=== PATIENT | female | born 1955 | race Caucasian/White ===

== ENCOUNTER → 2018-11-22 16:58 | Outpatient (CLI) | payer OTHER, SELFPAY ==
[2018-11-22 17:33] LABS: Appearance Urine UA CLEAR; Bilirubin Urine UA NEGATIVE (NEGATIVE); Color Urine UA YELLOW; Glucose Urine UA NEGATIVE (Negative); Ketones Urine UA NEGATIVE (NEGATIVE); Leukocyte Esterase Urine UA NEGATIVE (NEGATIVE); Nitrite Urine UA NEGATIVE (Negative); Occult Blood Urine UA NEGATIVE (Negative); Protein Urine UA TRACE (Negative); Specific Gravity Urine UA 1.025 (1.000-1.035); Urobilinogen Urine UA 0.2 E.U./dL (0.2)
[2018-11-22 17:47] LABS: Bacteria Urine Few (2-10); Mucus Urine 2+ (Negative); RBC Urine 0-1/HPF (0-5/HPF); Squamous Epithelial Cell Urine 1-5 /HPF (0-5/HPF); WBC Urine 1-5/HPF (0-5/HPF)
[2018-11-22 17:52] LABS: Hematocrit 38.3 % (36-46); Mean Corpuscular Hemoglobin 30.5 PG (26-34); Mean Corpuscular Volume 89.8 fL (80-100); Platelet Count 211 X10^3/uL (150-400); Red Blood Cell Count 4.27 X10^6/uL (4.0-5.2); Red Cell Distribution Width 13.5 % (11.6-14.8); White Blood Cell Count 7.6 X10^3/uL (4.5-11.0)
[2018-11-22 18:03] LABS: Blood Urea Nitrogen 16 mg/dL (7-17); Calcium 9.3 mg/dL (8.4-10.2); Carbon Dioxide 28 mmol/L (22-32); Chloride 105 mmol/L (98-107); Estimated Glomerular Filt Rate > 60.0 mL/min (>60); Glucose 100 mg/dL (80-110); HEMOLYSIS < 15 (0-50); Potassium 4.2 mmol/L (3.4-5.1); Sodium 143 mmol/L (137-145)
[2018-11-22 18:06] LABS: Hemoglobin A1C% w Est Avg Glu 6.4 % (4.0-6.0)
[2018-11-22 18:09] LABS: Transferrin 259 mg/dL (206-381)
== END ==
PROVIDERS: PCP Nurse Practitioner Family; Visit Provider Orthopaedic Surgery
DX: E61.1 Iron deficiency (principal); N39.0 Urinary tract infection, site not specified; R73.9 Hyperglycemia, unspecified; Z01.818 Encounter for other preprocedural examination
CPT/HCPCS: 36415; 80048; 81001; 83036; 84466; 85027; 93005

== ENCOUNTER 2018-12-04 07:37 | Inpatient (IN) | payer OTHER, SELFPAY ==
[2018-11-20 08:47] VITALS: BMI 36.1
[2018-12-04] VITALS (16 sets, daily range): BP systolic 114–150; BP diastolic 61–78; PULSE 50–107; RESP 9–17; TEMP 36–36.7; O2SAT 93–97; BMI 35.6
--- NOTE | 2018-12-04 06:00 | DI.RAD.S_ITS ---
PROCEDURE: XR KNEE LT 1TO2V INDICATIONS: post operatvie left knee TECHNIQUE: 2 view(s) of the knee acquired. COMPARISON: None. FINDINGS: Bones: Patient is status post knee joint arthroplasty. Hardware components are in expected positions. Visualized bony structures are intact. Soft tissues: Overlying postoperative changes are noted. IMPRESSION: Normal alignment established after left total knee arthroplasty. Dictated by: Bruno Casillas M.D. on 12/04/2018 at 14:20 Approved by: Bruno Casillas M.D. on 12/04/2018 at 14:21
[2018-12-04] MEDS: LACTATED RINGERS 1,000 ML 42 ML IV ×3 (08:05→13:30)
[2018-12-04] MEDS: CELECOXIB 200 MG CAPSULE PO (08:08)
[2018-12-04] MEDS: ACETAMINOPHEN 325 MG TABLET 975 MG PO ×2 (08:08→22:06)
[2018-12-04] MEDS: PREGABALIN 75 MG CAPSULE PO (08:08)
--- NOTE | 2018-12-04 09:57 | PM.PREOP ---
Pre-operative Note Interval Note History & Physical reviewed/Exam performed by Physician: Yes Changes to H&P: No
[2018-12-04] MEDS: MIDAZOLAM 2 MG/2 ML VIAL IV (10:21)
[2018-12-04] MEDS: fentaNYL 100 MCG/2 ML INJ 50 MCG IV (10:21)
[2018-12-04] MEDS: CEFAZOLIN 2 GM/100 ML FROZ.PIGGY IV (10:50)
--- NOTE | 2018-12-04 11:11 | SUR.OPER ---
Supine on padded OR bed. Pillow under head, arms secured on padded armboards <90 degree abduction. Safety belt across torso. Non-operative leg secured with tape over blanket over lower leg. Operative leg secured in [employer] positioner. Foam padded brace at thigh of operative leg.
[2018-12-04] MEDS: BUPIVACAINE 0.25% W/ EPI 30 ML VIAL 60 ML INJ (11:22)
[2018-12-04] MEDS: BUPIVACAINE LIPOSOME 266 MG/20 ML VIAL INJ (11:23)
[2018-12-04] MEDS: MORPHINE 4 MG/ML INJ INJ (11:23)
[2018-12-04] MEDS: TRANEXAMIC ACID 1,000 MG VIAL 1000 MG INJ (11:27)
--- NOTE | 2018-12-04 12:36 | PM.OP.1 ---
Operative Date/Time/Diagnoses Date of procedure: 12/04/18 Time of procedure: 12:15 Pre-op diagnosis: Left knee osteoarthritis Post-op diagnosis: same Procedure & Clinicians Procedure: Left total knee replacement Same procedure as scheduled: Yes Indications: The patient has had progressively worsening left knee pain with radiographic changes consistent with arthritis. Non-operative management has failed and the patient has requested total knee replacement. The risks, benefits and alternatives to surgery were discussed with the patient prior to proceeding. Risks discussed included, but were not limited to, failure to relieve pain, stiffness, infection, nerve damage, deep venous thrombosis, pulmonary embolism, stroke, coma, heart attack, permanent paralysis and , as well as the potential need for eventual revision of the prosthetic. 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 Closure Type: primary Specimen(s): none sent Prosthetic devices, grafts, tissues, transplants, or devices: Implants used in this procedure were manufactured by the [employer] and [employer] and included the BCS II Journey total knee replacement with a size 5 left Oxinium femoral component, a size 4 left non porous tibial base plate, a 10 mm constrained tibial insert and a 35 mm oval Anna II patellar component. Applied: implant(s) Estimated Blood Loss (mL): 50 Blood products transfused: none Tourniquet time (min): 57 Procedure in detail: The patient was seen in the pre-operative area, where the patient identified the right knee as the operative site and this was marked with my initials. The patient received pre-operative antibiotics, and was taken to the operating room and placed on the operative table in the supine position. After satisfactory anesthesia, a equipment or machinery cleaner out was performed. The right leg was encircled with a tourniquet about the proximal thigh, and the leg was prepared from the toes to the tourniquet with ChloroPrep in the usual fashion and draped through sterile drapes. The leg was elevated and exsanguinated with Eschmark bandage and the tourniquet inflated to 250 mmHg pressure. The knee was approached through an approximately 18 cm incision centered over the patella and carried into the knee through a medial parapatellar arthrotomy. The anterior osteophytes and soft tissues were removed. The rotational landmarks of Elko's line and the transepicondylar axis were marked on the femur with electrocautery, and intramedullary guide holes for the femur and tibia were created. The distal femoral cut was made in 6 degrees of valgus using the intramedullary guide at the primary cut setting. The proximal tibial cut was then made using the intramedullary guide, taking 9 mm of bone off the less involved side. The extension gap was checked and the rotation of the femoral component confirmed with the gap balancing system. The anterior, posterior and chamfer cuts were then made. The posterior osteophytes and soft tissues were then removed. The posterior capsule was injected with part of a mixture of 50 ml 0.25% Marcaine mixed with 20 ml Exparel and 4 mg of morphine for post-operative pain control. The remainder of this mixture was injected into the capsule and subcutaneous tissues during cement curing. The tibia was prepared with the rotation set by an extra medullary guide. Trial tibial and femoral components were then placed and the intercondylar notch cut through the femoral trial. Range of motion was 0-135 degrees. There was some residual laxity of the collateral ligaments which I believed to be related to the patient's congenital tibial varus. This was easily corrected with the constrained polyethylene trial. It should be noted the patient has a similar prosthetic in the opposite knee. The patella was then cut to accommodate the patellar prosthetic. There was no need for a lateral release. The trials were then removed, and the femoral hole plugged with a bone plug. The bone was prepared with pulsatile lavage, and dried with a sponge. Cement was applied and the final prosthetics placed. Excess cement was removed during and after cement curing. After confirming there was no extruded cement posteriorly, the final tibial insert was placed. The knee was copiously irrigated and the tourniquet deflated. Hemostasis was obtained. The capsule was closed with interrupted # 2 polyester suture. The subcutaneous layer was closed with 3-0 Vicryl, and the skin with a running 3-0 V-Lock suture and SteriStrips. An Aquacel Ag dressing was applied and the patient was taken to recovery having tolerated the procedure well. Complications: none Condition: stable Disposition: PACU Plan for aftercare: The patient will be maintained on a standard total knee replacement protocol with weight bearing as tolerated. The patient will receive aspirin and sequential compression devices for DVT prophylaxis. The patient will be discharged home when safe for the home environment.
[2018-12-04] MEDS: ONDANSETRON 4 MG/2 ML INJ IV (12:43)
--- NOTE | 2018-12-04 13:01 | SUR.PHASEI ---
aroused easily to voice, acknowledges that nausea is gone. Returned to sleep. Skin warm and dry, resp unlabored.
--- NOTE | 2018-12-04 13:15 | SUR.PHASEI ---
Admit to PACU - late entry: Admitted to PACU by Tonja Pandey RN, this RN was nearby. Patient arrived coughing/phlegm vs nausea. Anesthesia preferred to observe and determine if it was nausea or not. Rx given per anesthesia == see Emar. 1243 Rx given as ordered. 1250 No emesis,spit up clear phlegm.To sleep after Rx was given. 1310 Report called to floor. Patient arouses easily to voice, resp even and regular. Skin warm and dry. 1315 HR inteermittantly into the upper 40's (otherwise stable and comfortable). Dr. Lord informed, no orders given other than to keep patient in PACU longer. He will check on her prior to departure.
--- NOTE | 2018-12-04 13:30 | SUR.PHASEI ---
aroused spontaneously, c/o feeling shaky, slight shivers, denies feeling cold. Denies pain/nausea.
--- NOTE | 2018-12-04 13:51 | SUR.PHASEI ---
patient desired rx for slight shivers, med drawn up then patient changed her mind. Updated Dr. Lord on HR; BP stable, patient comfortable and assymptomatic. OK'd transfer to the floor - wants patient on Tele overnight.
--- NOTE | 2018-12-04 14:15 | SUR.PHASEI ---
Addendum entered by Ruth Evans R.N. 12/04/18 14:19: Ice pack remains on left knee. Original Note: 1404 To room 204, bed down and locked, call light within reach, SCDs on. Clothing and backpack to room -- BIOLOGICAL PLANT OPERATOR handed backpack to her spouse. Patient awake, oriented, O2 mid 90s on RA. Tele on. Stable, began to complain of left knee pain in the elevator; info relayed to AC RN, pain 4-09/15. Dressing remains CDI, tolerating ice chips well. Skin warm and dry, resp unlabored. No further questions.
[2018-12-04] MEDS: HYDROMORPHONE 0.5 MG INJ IV ×2 (14:52→18:12)
[2018-12-04] MEDS: LACTATED RINGERS 1,000 ML 125 ML IV ×2 (14:53→22:17)
--- NOTE | 2018-12-04 14:59 | PC.NURSE ---
Pt arrived via Pacu accompanied by RN and ACCOUNTING MACHINE MECHANIC. Pt arousable, begining to feel sensation and move operative foot. Knee wrapped without shadow drainage. IV HL accessed and LR started per orders. discussed pain meds and gave Pt 0.5mg dilaudid. Pt stating pain, requesting pain meds. attentive at bedside. asking appropriate questions regarding pain meds. times for next doses written on Pt board.
--- NOTE | 2018-12-04 16:43 | PC.NURSE ---
Post-op note: Jess is sleeping, FLACC score zero. Spouse at bedside, reporting she was in a lot of pain not too long ago, reports she has been sleeping since medicated for pain. LLE with bulky drsg CDI, good pedal pulses, legs are warm, SCD's on bilaterally. VS are stable. RA oxygen 92-95% and respirations regular. Skin palor. This nurse will allow rest at this point per spouse report. She has not had anything to eat/drink since brought from surgery. This nurse unable to enter admission paperwork at this point.
[2018-12-04] MEDS: OXYCODONE IR 5 MG TABLET PO (18:13)
[2018-12-04] MEDS: hydrOXYzine pamoate 25 MG CAPSULE PO (18:14)
--- NOTE | 2018-12-04 18:24 | PC.NURSE ---
Pt is complaining of left knee surgical pain 10/ medicated with 0.5mg dilaudid ivp, vistaril 25mg and oxycodone 5mg po. scd's off d/t increase pain and pt wishes it off for a while. ice applied. friend/family visiting.
[2018-12-04] MEDS: PANTOPRAZOLE 20 MG TABLET PO (22:05)
[2018-12-04] MEDS: ASPIRIN EC 81 MG TABLET PO (22:06)
[2018-12-04] MEDS: DOCUSATE 100 MG CAPSULE PO (22:07)
[2018-12-04] MEDS: OXYCODONE IR 10 MG TABLET PO (22:16)
[2018-12-05] MEDS: OXYCODONE IR 10 MG TABLET PO ×3 (01:29→07:40)
[2018-12-05 03:10] VITALS: BP 137/82; PULSE 78; RESP 21; TEMP 36.8; O2SAT 94
--- NOTE | 2018-12-05 05:41 | PC.NURSE ---
Addendum entered by Sayda Jackson R.N. 12/05/18 05:53: Pt's dressing has kaley wrap clean/dry/intact Original Note: Pt VSS, lung sounds clear bilaterally. CMS intact, pedal pulses strong. Pt has some pain issues and is having 10mg of Oxycodone Q3. Pt has SCD's on. Is using bedside commode.
[2018-12-05 06:17] LABS: Hematocrit 33.8 % (36-46); Hemoglobin 11.5 g/dL (12.0-16.0)
--- NOTE | 2018-12-05 07:33 | PM.DS.1 ---
History of Present Illness Date Patient Seen: 12/05/18 Time Patient Seen: 07:33 Chief complaint: [id number] Left Total Knee Arthroplasty Narrative: The history and physical are contained in the chart previously completed note. Please refer to that note for this information. Discharge Providers Date of admission: 12/04/18 07:37 Discharge Date: 12/05/18 Primary care physician: JASON Prado Consults: 12/04/18 14:17 Consult to Discharge Planning Routine Comment: Consult to Physical Therapy Evaluate & Treat Comment: Physician Instructions: postop TKA protocol Discharge provider: Raoul Spear MD Summary Discharge Diagnosis: 1. Left knee osteoarthritis 2. Post hemorrhagic anemia Hospital Course: The patient was admitted to the hospital and taken directly to the operating room on December 04, 2018 where she underwent a left total knee replacement. She tolerated this procedure well however she did have some significant pain control issues on the 1st postoperative night. By the morning of postoperative day 1 these had resolved. At the time of this dictation she has not yet seen physical therapy but the hope is that after therapy she will be able to be discharged today. Status at Discharge Cognitive/behavioral status at discharge: oriented Functional status at discharge: uses cane/walker Overall status at discharge: patient is progressing back to baseline Time Spent with Patient Less than 30 minutes Exam Vital Signs (past 8 hours): - 12/04/18 23:55 12/05/18 03:10 Temperature 98.1 F 98.3 F Pulse Rate 85 78 Respiratory Rate 17 21 Blood Pressure 137/77 137/82 Pulse Oximetry 96 94 Oxygen Delivery Method Room Air Oxygen Flow Rate 0 Narrative Exam Narrative: Left knee wound is dressed with no drainage on the bandage. Calf is soft. Light touch and motion are intact in the left lower extremity. Objective Labs Result Diagrams: 12/05/18 05:57 Labs: Laboratory Results - last 24 hr 12/05/18 05:57 Hgb 11.5 L Hct 33.8 L Discharge Plan Discharge Plan Patient Disposition: Home Discharge Med Rec/Prescriptions Prescriptions: New acetaminophen 325 mg Tablet 975 mg PO TID 30 Days Qty: 270 RF: 0 aspirin 81 mg Tablet,Delayed Release (Dr/Ec) 81 mg PO BID 42 Days Qty: 84 RF: 0 hydroxyzine pamoate 25 mg Capsule 25 mg PO Q6HR PRN (Reason: Nausea) Qty: 40 RF: 0 oxycodone 5 mg Tablet 5 mg PO Q3HR PRN (Reason: Pain, Moderate (4-6)) Qty: 40 RF: 0 Continued pravastatin 40 mg Tablet 40 mg PO QAM RF: 0 albuterol sulfate [ProAir HFA] 90 mcg/actuation Hfa Aerosol Inhaler 2 puff INHALATION Q4-6H PRN (Reason: Cough) RF: 0 fluticasone propionate [Flonase Allergy Relief] 50 mcg/actuation [place],Suspension 1 spray INTRANASAL DAILY PRN (Reason: seasonal allergies) RF: 0 loratadine [Claritin] 10 mg Tablet 10 mg PO DAILY PRN (Reason: seasonal allergies) RF: 0 omeprazole 20 mg Tablet,Delayed Release (Dr/Ec) 20 mg PO QPM RF: 0 Discontinued aspirin 81 mg Tablet,Delayed Release (Dr/Ec) 81 mg PO DAILY RF: 0 acetaminophen [Tylenol Arthritis Pain] 650 mg Tablet Extended Release 1,300 mg PO Q8H PRN (Reason: Pain) RF: 0 ibuprofen [Advil] 200 mg Tablet 800 mg PO Q4H PRN (Reason: Pain) RF: 0 Follow up/Referrals: Ghazala Bellamy ARNP [Primary Care Provider] - Raoul Spear MD [Physician] - 3-5 Days Provider Discharge Instructions Diet: Diet as Tolerated and Carb-consistent/Diabetic Activity: You may bear weight as tolerated on your left leg. Cold/Heat Therapy: Apply ice for 15 minutes every hour to the left knee as needed for pain. Skin/Wound/Dressing Care Report to your healthcare provider any signs of infection, such as:: chills, fever, night sweats, increased pain, unusual drainage and unusual redness Dressing: Removed the Se wrap 3 days after surgery. You may then shower normally. Leave the deeper dressing in place. If the central strip of the deeper dressing becomes saturated with either water or blood, please call the office to have it changed. Visit Report/Discharge Packet Instructions: DI for Knee Replacement Stand Alone Forms: Surgery Discharge Discharge Data Primary Care Provider: Ghazala Bellamy Attending Provider: Raoul Spear Admit Date/Time: 12/04/18 07:37
[2018-12-05] MEDS: DOCUSATE 100 MG CAPSULE PO ×2 (07:41→21:03)
[2018-12-05] MEDS: ACETAMINOPHEN 325 MG TABLET 975 MG PO ×3 (07:41→21:01)
[2018-12-05] MEDS: MELOXICAM 7.5 MG TABLET 15 MG PO (07:41)
[2018-12-05 08:00] VITALS: BP 151/89; PULSE 86; RESP 18; TEMP 36.8; O2SAT 94
[2018-12-05] MEDS: ASPIRIN EC 81 MG TABLET PO ×2 (08:08→21:01)
[2018-12-05] MEDS: INSULIN ASPART 100 UNIT/ML INSULN PEN SUBCUT ×2 (08:08→17:07)
[2018-12-05] MEDS: HYDROMORPHONE 0.5 MG INJ IV (08:59)
[2018-12-05] MEDS: HYDROMORPHONE 2 MG TABLET PO ×4 (10:44→21:01)
--- NOTE | 2018-12-05 11:00 | PT.IIE ---
Current Diagnoses Unilateral primary osteoarthritis, left knee (12/04/18) Surgery Performed Operation Date: 12/04/18 10:00 Actual Procedures p Total Knee Arthroplasty(Left) - Raoul Spear MD Surgical History (Last Updated 11/23/18 @ 10:21 by Lilly Lopez RN) H/O left knee surgery (Acute) History of esophagogastroduodenoscopy (EGD) (Acute 10/07/17) History of arthroplasty of right knee (Acute) History of arthroscopy of both knees (Acute) History of partial hysterectomy (Acute) Hx of appendectomy (Acute) Hx of tubal ligation (Acute) Medical History (Last Updated 11/23/18 @ 11:00 by Lilly Lopez RN) Diabetes mellitus, type II (Acute) Former smoker (Acute) GERD (gastroesophageal reflux disease) (Acute) HLD (hyperlipidemia) (Acute) HTN (hypertension) (Acute) Insomnia (Acute) Intestinal metaplasia of gastric mucosa (Acute) Migraine without aura (Acute) Bradycardia (Acute) DVT (deep venous thrombosis) (Acute ~2013) Neck pain (Acute) Osteoarthritis (Acute) RLS (restless legs syndrome) (Acute) Seasonal allergies (Acute) Physical Therapy Inpatient Evaluation/Re-Eval M1 PT/OT-IP Prior Functional Status Start: 12/04/18 16:57 Freq: NEEDED Status: Active Protocol: Document 12/05/18 11:00 AB (Rec: 12/05/18 12:45 AB [id number]) Medical Review Prior Functional Status Medical History Reviewed Yes Communication able to make needs known Mobility and Gait pt stated that she is independent with all mobilities and ambulation without AD Social History Household Members spouse Living Arrangements House Number of Floors (Floors) One Floor Number of Stairs To Enter/Railing? 2 step to enter from the garage without rails 3 steps from the front with R rail ascending Home Environment Standard Height Toilet Tub/Shower Home Equipment Front Wheel Walker Straight Cane Raised Toilet Seat w/Armrests Hand Held Shower Employment Status Retired M2 PT-IP Current Condition Start: 12/04/18 16:57 Freq: NEEDED Status: Active Protocol: Document 12/05/18 11:00 AB (Rec: 12/05/18 12:45 AB [id number]) Physical Therapy Current Condition Current Condition Evaluation Date 12/05/18 Treatment Diagnosis s/p L TKA; difficulty in walking Onset Date 12/04/18 Weight Bearing Status Weight Bearing Status Weight Bear as Tolerated M3 PT-IP Subjective Start: 12/04/18 16:57 Freq: NEEDED Status: Active Protocol: Document 12/05/18 11:00 AB (Rec: 12/05/18 12:45 AB [id number]) Subjective Physical Therapy Visit Type Type Initial Evaluation Visit Start Time 11:00 Visit Stop Time 11:37 Total Visit Minutes 37 Number of CRAP SHOOTER Visits 0 Physical Therapy Visit Comments Patient Comments pt agreeable to do PT Therapy Pain Assessment Pain When Pain Assessed At Rest Pain Present Pain Present Pain Reported Location Left Knee Intensity 6 Scale Used Numeric (1 - 10) Pain Management Techniques Apply Cold Re-positioning Timing of Activity with Medications M4 PT-IP Mobility and Gait Start: 12/04/18 16:57 Freq: NEEDED Status: Active Protocol: Document 12/05/18 11:00 AB (Rec: 12/05/18 12:45 AB [id number]) PT-Bed Mobility Assessment Supine to Sit Supine to Sit Standby Assistance Scooting Scooting to Edge of Bed Standby Assistance PT-Transfer Assessment Sit to and From Stand Sit to and from Stand Contact Guard Assistance Minimal Assistance Equipment Transfer Assistive Device Gait Belt Front Wheeled Walker Transfers Transfer Destination Chair Toilet Transfer Technique pt ambulated using FWW Transfer Ability Level of Assist Contact Guard Assistance Minimal Assistance 1 Person Assistance Use of Upper Extremities Comments Mobility Comments pt completed supine to sit SBA with increase time needed to complete task. pt completed sit to stand CGA to min A and cues for techniques. Pt ambulated using FWW ~ 20ft towards the toilet CGa to min A and cues for L quads activation. pt was able to complete sit to stand from the toilet using grab bar min A and cues and pt ambulate using FWW CGA to min A towards the sink. pt was able to maintain standing CGA while completing handwashing. pt agreed to sit up on the chair and ambulated towards the chair ~ 10 ft CGA to min A and cues. positioned pt on chair. ice pack provided. call light and table placed within reach. Gait Assessment Gait Gait Assistance Required: Contact Guard Assist Minimum Assistance Distance (Feet) 20 Able to Maintain Weight Bearing Status Yes During Gait Assistive Devices Assistive Device Gait Belt Front Wheeled Walker Orthotic/Prosthetic Devices or Brace: No Gait Deviations General Gait Pattern Antalgic Decreased Stride Length Decreased Feet Clearance Step-to Gait Factors Limiting Gait Function Factors Limiting Gait Function Decreased Activity Tolerance Decreased Strength Limited Range of Motion Pain Poor Balance PT-Balance Assessment Sitting Balance and Reactions Static Sitting Balance Ability Good Dynamic Sitting Balance Ability Good Standing Balance and Reactions Static Standing Balance Ability Fair Dynamic Standing Balance Ability Fair Device Used FWW M5 PT-IP Objective Assessments Start: 12/04/18 16:57 Freq: NEEDED Status: Active Protocol: Document 12/05/18 11:00 AB (Rec: 12/05/18 12:45 AB [id number]) Orientation Orientation/Cognition Level of Alertness Alert Orientation Name Age Birthday Month Date Year Day of Week Place Situation Language Function Ability No Deficits Noted Safety Awareness Understands Safety Issues Memory Description No Deficits Noted Gross Range of Motion Lower Extremity ROM Assessment Left Impaired Impairments L knee flexion: ~ 60 deg L knee extension: ~ 30 degress less to 0 Strength Lower Extremity Strength Assessment Left Impaired Hip 3+/5 Knee 3-/5 Coordination Assessment Gross Coordination Gross Coordination WNL Sensation Assessment Sensation Gross Sensation WNL Muscle Tone Muscle Tone WNL Yes M6 PT-IP Treatment Start: 12/04/18 16:57 Freq: NEEDED Status: Active Protocol: Document 12/05/18 11:00 AB (Rec: 12/05/18 12:45 AB [id number]) Physical Therapy Treatment Exercises Exercises Quad Sets Heel Slides Education Education Provided Precautions Weight Bearing Status Post-Op Packet Safety M7 PT-IP Assessment and Plan Start: 12/04/18 16:57 Freq: NEEDED Status: Active Protocol: Document 12/05/18 11:00 AB (Rec: 12/05/18 12:45 AB [id number]) PT Summary Assessment and Plan Potential Rehabilitation Potential Good Status of Condition at Evaluation Stable Summary Impairments Pain ROM Strength Balance Bed Mobility Transfers Gait Activity Tolerance Assessment Summary Pt requiring CGA to min A with mobility and will likely improve during hospital stay. pain increased to 8/10 with mobility and is one of the limiting factor at this time. pt plans to go home with spouse to assist her. will have to complete stair climbing training prior to d/c . Goals Bed Mobility Goal Independent Transfer Goal Independent Front Wheeled Walker Gait Goal Independent Front Wheel Walker Gait Distance 200 Other Goals up/down 3 steps with R rail ascending CGA Days to Meet Goals 5 Frequency of Treatment Frequency Of Treatment Twice a Day Treatment Plan Physical Therapy Treatment Plan Bed Mobility Training Transfer Training Gait Training Therapeutic Exercise Balance Retraining Post Op Education Discharge Planning Hot or Cold Pack Neuromuscular Re-ed Coordination Retraining Manual Therapy Other Recommendations and Next Treatment ambulation, stair climbing is Focus appropriate Recommendations To Nursing Amount of Assist Needed 1 Person Assist Discharge Recommendations PT Discharge Recommendations Home with Assistance Outpatient PT
[2018-12-05 11:45] VITALS: BP 152/80; PULSE 90; RESP 18; TEMP 36.9; O2SAT 95
--- NOTE | 2018-12-05 13:50 | CM.DANOTE ---
DCP assessment Pt is a 63 yo female admitted to for elective left TKA performed on 12/04/[address] Spear. PCP Ghazala Bellamy NP. Payor: Maryann Lima. Pt is A/O and able to communicate her needs. SW met with pt/spouse and explained HISTORICAL INTERPRETER/CM team role. Patient complains of pain at time of visit. Patient and spouse also with concerns pertaining to process from recovery to bed on acute care floor. RN and Qian Maharaj director medical affairs notified. Pt lives with spouse, Andrew in [place]. Andrew is planning to be primary caregiver upon d/c. Pt was independent with ADLs prior to admission. There are 3 steps in residence. Pt has a FWW and cane available for use post surgery. Pt not stable to discharge at this time due to uncontrolled pain and stair training not yet completed with PT due to 8/10 pain. Spoke with therapy and they continue to work with patient to meet goals. Plan: Anticipate discharge home with spouse once medically stable. Outpatient physical therapy arranged per [facility] path protocol. CM team to continue to follow as needed. MELISA Izaguirre Discharge Planning/Care Management CM Discharge Assessment Start: 12/05/18 13:40 Freq: Status: Active Protocol: Document 12/05/18 13:40 BG (Rec: 12/05/18 13:49 BG [id number]) Discharge Planning Assessment Assigned Header Set Up Operator MELISA Izaguirre Contact Information Andrew Garzon [phone] ( spouse) Advance Directives? No History Provided By Patient Significant Other Medical Record Has Patient been admitted in last 30 No days? Prior Living Arrangements House Household Members spouse Independent with ADL's Yes Is patient alert and oriented? Yes Caregiver for Another No DME Already Rented / Owned FWW / Walker Cane Patient/Family Preference OP PT Therapy Barriers to Discharge Yes Comment At time of initial assessment (9 AM) pt with complaints of uncontrolled pain. RN notified . PT evaluation pending. Discharge Plan Home Whiteboard Updated in Patient Room with Yes name and ext. # of Header Set Up Operator Review Status In Process Next Review Type Continued Stay Review Pre-Anesthesia Assessment Start: 11/20/18 08:47 Freq: Status: Active Protocol: Document 11/20/18 08:47 CAB (Rec: 11/20/18 09:11 CAB [id number]) Pre-Anesthesia Assessment Patient Information Reviewed Via Phone Assessment Assessment Completed With Patient Diagnostic Results BMP/CMP CBC EKG Urinalysis Other Comment A1c. Labs/EKG @ [facility] 11/22/18 Primary Care Provider Ghazala Bellamy Seen Specialist in Last 12 Months Yes Specialist Seen Orthopedist Comment PCP note 03/21/18 scanned to record. Primary Language Pashto Precipitator Operator Required No Height 165.1 cm Weight 98.43 kg Body Mass Index (BMI) 36.1 Hearing Ability Normal Visual Assist Glasses Dentition Type Teeth, Natural Present Teeth, Missing Barriers to Learning None Other Aids No Hx Anesthesia Reactions Yes: Bradycardia with all anesthesia, DVT s/p L knee arthroscopy Hx Family Anesthesia Reaction No Hx Malignant Hyperthermia No Hx Blood Transfusions No Anesthesia Review Requested Yes: Surgeon requested re: Cardiac alcohol intake current alcohol intake frequency a few times a month Smoking Status Former smoker how long ago did patient quit smoking Quit 1978 Substance Use Type marijuana Comment Pt advised not to smoke marijuana 24 hours prior to surgery Pain Present Pain Reported Musculoskeletal Symptoms Abnormal Gait Difficulty Walking Joint Pain Muscle Cramps Neck Pain History of Falling (Recent or History of No ) Patient is completely paralyzed or No completely immobile Mental Status Oriented to own ability Is patient on oxygen? No Does patient have GAMBOA/SOB No Hx Sleep Apnea No Currently Taking a Beta Ngoc No Can You Climb a Flight of Stairs Without Yes SOB Hx Chest Pain No Hx SOB No Hx Syncope or Dizziness No Anti-Coagulant Therapy No Has a Trade Analyst No: Last saw cardiology approx 5 years ago for chest pain work-up negative Cardiac Testing No Hx Pacemaker/ICD No Pacemaker Rep Required? No Cardiac Clearance Received Not Applicable Diet Type At Home Regular dysphagia No Urinary Catheter Present No Hx Urinary Self Catheterization No Diabetes Yes HgbA1C 6.4 Date 11/22/18 Patient No Lactating No Hx Drug Resistant Organism No Presence of External or Internal Medical Yes: Right knee prosthesis Devices Have you traveled outside the [facility] States in the last 30 days? Marital Status Lives With spouse Prior Living Arrangements House Number of Floors (Floors) Two Floors Support System Spouse Does the Patient Have Assistance After Yes Surgery Patient Discharge Plan Description Return Home Comment Pt advised overnight length of stay per surgeon's office Feels Safe in Current Environment Yes Been Physically Hurt or Threatened By a No Person in Current Environment Do you have thoughts of harming yourself None or others? Are you currently considering suicide? No Do you have a plan to hurt yourself or No Plan others? Do You Have Any Spiritual Beliefs That No May Affect Your HC Choices? Do You Have Any Cultural Practices That No May Affect Your HC Choices? Who Can We Speak to About Patient's Care Family, friends Identifying Code for Release of Patient Declines to issue Information Health Care Proxy/Next of Kin Vishal () Health Care Proxy Emergency Contact Name Vishal () Emergency Contact Advance Directives? No: Declines further information PAC Instructions Do not shave/clip surgical site Durable medical equipment Medications to take/avoid Nasal antibiotic No ETOH/petroleum product on skin DOS NPO Post-op transportation Pre-surgical wash Sturdy shoes/comfortable clothes Do not bring valuables and remove jewelry
--- NOTE | 2018-12-05 15:24 | PT.IPTN ---
Current Diagnoses Unilateral primary osteoarthritis, left knee (12/04/18) Surgery Performed Operation Date: 12/04/18 10:00 Actual Procedures p Total Knee Arthroplasty(Left) - Raoul Spear MD Physical Therapy Treatment Note M2 PT-IP Current Condition Start: 12/04/18 16:57 Freq: NEEDED Status: Active Protocol: Document 12/05/18 11:00 AB (Rec: 12/05/18 12:45 AB [id number]) Physical Therapy Current Condition Current Condition Evaluation Date 12/05/18 Treatment Diagnosis s/p L TKA; difficulty in walking Onset Date 12/04/18 Weight Bearing Status Weight Bearing Status Weight Bear as Tolerated M3 PT-IP Subjective Start: 12/04/18 16:57 Freq: NEEDED Status: Active Protocol: Document 12/05/18 15:24 AB (Rec: 12/05/18 16:27 AB [id number]) Subjective Physical Therapy Visit Type Type Treatment Note Visit Start Time 15:24 Visit Stop Time 15:40 Total Visit Minutes 21 Number of TELEPHONE SUPERVISOR Visits 0 Physical Therapy Visit Comments Patient Comments pt agreeable to do PT Therapy Pain Assessment Pain When Pain Assessed At Rest Pain Present Pain Present Pain Reported Location Left Knee Intensity 2 Scale Used increases to 5/10 with mobility Pain Management Techniques Re-positioning Timing of Activity with Medications M4 PT-IP Mobility and Gait Start: 12/04/18 16:57 Freq: NEEDED Status: Active Protocol: Document 12/05/18 15:24 AB (Rec: 12/05/18 16:27 AB [id number]) PT-Bed Mobility Assessment Supine to Sit Supine to Sit Standby Assistance Sit to Supine Sit to Supine Standby Assistance Scooting Scooting to Edge of Bed Standby Assistance PT-Transfer Assessment Sit to and From Stand Sit to and from Stand Contact Guard Assistance Equipment Transfer Assistive Device Gait Belt Front Wheeled Walker Orthotic/Prosthetic Devices or Brace: No Gait Assessment Gait Gait Assistance Required: Contact Guard Assist Distance (Feet) 75 Able to Maintain Weight Bearing Status Yes During Gait Assistive Devices Assistive Device Gait Belt Front Wheeled Walker Orthotic/Prosthetic Devices or Brace: No Gait Deviations General Gait Pattern Antalgic Decreased Stride Length Decreased Feet Clearance Step-to Gait Factors Limiting Gait Function Factors Limiting Gait Function Decreased Activity Tolerance Decreased Strength Limited Range of Motion Pain Poor Balance Comments Gait Comments need cues to activate L quads for stability Stair Climbing Assessment Evaluation Level of Assist On Stairs Minimal Assistance Devices Stair Climbing Assistive Devices Left Railing Right Railing Technique/Endurance Stair Climbing Direction Ascend and Descend Stair Climbing Technique Step to Step Number of Steps Climbed 3 Stair Climbing Set # Repetitions (reps) 1 M5 PT-IP Objective Assessments Start: 12/04/18 16:57 Freq: NEEDED Status: Active Protocol: Document 12/05/18 11:00 AB (Rec: 12/05/18 12:45 AB [id number]) Orientation Orientation/Cognition Level of Alertness Alert Orientation Name Age Birthday Month Date Year Day of Week Place Situation Language Function Ability No Deficits Noted Safety Awareness Understands Safety Issues Memory Description No Deficits Noted Gross Range of Motion Lower Extremity ROM Assessment Left Impaired Impairments L knee flexion: ~ 60 deg L knee extension: ~ 30 degress less to 0 Strength Lower Extremity Strength Assessment Left Impaired Hip 3+/5 Knee 3-/5 Coordination Assessment Gross Coordination Gross Coordination WNL Sensation Assessment Sensation Gross Sensation WNL Muscle Tone Muscle Tone WNL Yes M6 PT-IP Treatment Start: 12/04/18 16:57 Freq: NEEDED Status: Active Protocol: Document 12/05/18 15:24 AB (Rec: 12/05/18 16:27 AB [id number]) Physical Therapy Treatment Exercises Exercises Heel Slides Education Education Provided Safety M7 PT-IP Assessment and Plan Start: 12/04/18 16:57 Freq: NEEDED Status: Active Protocol: Document 12/05/18 15:24 AB (Rec: 12/05/18 16:27 AB [id number]) PT Summary Assessment and Plan Potential Rehabilitation Potential Good Summary Impairments Pain ROM Strength Balance Coordination Sensation Tone Cognition Bed Mobility Transfers Gait Activity Tolerance Progress Towards Goals Slow Progress due to Pain Assessment Summary pt requiring CGA with transfers and ambulation; requires min A with stair climbing. will conduct further stair climbing training on next tx session and also caregiver training. pt will have spouse to assist her at home. Goals Bed Mobility Goal Independent Transfer Goal Independent Front Wheeled Walker Gait Goal Independent Front Wheel Walker Gait Distance 200 Other Goals up/down 3 steps with R rail ascending CGA Days to Meet Goals 5 Frequency of Treatment Frequency Of Treatment Twice a Day Treatment Plan Physical Therapy Treatment Plan Bed Mobility Training Transfer Training Gait Training Therapeutic Exercise Balance Retraining Post Op Education Discharge Planning Hot or Cold Pack Neuromuscular Re-ed Coordination Retraining Manual Therapy Other Recommendations and Next Treatment ambulation, stair climbing is Focus appropriate Recommendations To Nursing Amount of Assist Needed 1 Person Assist Discharge Recommendations PT Discharge Recommendations Home with Assistance Outpatient PT
[2018-12-05 17:00] VITALS: BP 142/84; PULSE 84; RESP 16; TEMP 36.6; O2SAT 99
[2018-12-05] MEDS: PANTOPRAZOLE 20 MG TABLET PO (17:00)
[2018-12-05 20:57] VITALS: BP 144/80; PULSE 94; RESP 16; TEMP 36.7; O2SAT 96
[2018-12-05] MEDS: PRAVASTATIN 20 MG TABLET 40 MG PO (21:01)
[2018-12-05] MEDS: SODIUM CHLORIDE 0.9% FLUSH 10 ML IV (21:01)
[2018-12-06] VITALS: BP 142/78; PULSE 93; RESP 18; TEMP 37.1; O2SAT 95
[2018-12-06] MEDS: hydrOXYzine pamoate 25 MG CAPSULE PO (05:45)
[2018-12-06 06:00] VITALS: BP 137/96; PULSE 92; RESP 16; TEMP 37.5; O2SAT 97
--- NOTE | 2018-12-06 06:12 | PC.NURSE ---
Pt is doing well. No complaints of pain overnight. Pt woke up this morning with 2 out of 10 pain, decided to wait off on pain meds until later in the morning. Had some muscle spasms, given Vistaril this morning. Dressing is clean, dry and intact.
[2018-12-06] MEDS: HYDROMORPHONE 2 MG TABLET PO (06:42)
--- NOTE | 2018-12-06 06:42 | PM.DS.1 ---
History of Present Illness Date Patient Seen: 12/06/18 Time Patient Seen: 06:42 Chief complaint: [id number] Left Total Knee Arthroplasty Narrative: The history and physical are contained in the chart previously completed note. Please refer to that note for this information. Discharge Providers Date of admission: 12/04/18 07:37 Discharge Date: 12/06/18 Primary care physician: JASON Prado Consults: 12/04/18 14:17 Consult to Discharge Planning Routine Comment: Consult to Physical Therapy Evaluate & Treat Comment: Physician Instructions: postop TKA protocol Discharge provider: Raoul Spear MD Summary Discharge Diagnosis: 1. Left knee osteoarthritis 2. Post hemorrhagic anemia Hospital Course: The patient was admitted the hospital and taken directly to the operating room on December 04, 2018. She underwent a left total knee replacement without complication. She had poor pain control on postoperative day 1. Originally the plan had been for her to be discharged on that day however pain control was an adequate and limited her ability to do physical therapy. On postoperative day 2 she was comfortable and had made enough progress with physical therapy the discharge was feasible. Status at Discharge Cognitive/behavioral status at discharge: oriented Functional status at discharge: uses cane/walker Overall status at discharge: patient is progressing back to baseline Time Spent with Patient Less than 30 minutes Exam Vital Signs (past 8 hours): - 12/06/18 00:00 12/06/18 06:00 Temperature 98.8 F 99.5 F Pulse Rate 93 H 92 H Respiratory Rate 18 16 Blood Pressure 142/78 H 137/96 H Pulse Oximetry 95 97 Oxygen Delivery Method Room Air Oxygen Flow Rate 0 Narrative Exam Narrative: Left knee wound is dressed with no drainage on the bandage. Calf is soft. Light touch and motion are intact in the left lower extremity. Objective Labs Result Diagrams: 12/05/18 05:57 Discharge Plan Discharge Plan Patient Disposition: Home Discharge Med Rec/Prescriptions Prescriptions: New acetaminophen 325 mg Tablet 975 mg PO TID 30 Days Qty: 270 RF: 0 aspirin 81 mg Tablet,Delayed Release (Dr/Ec) 81 mg PO BID 42 Days Qty: 84 RF: 0 hydroxyzine pamoate 25 mg Capsule 25 mg PO Q6HR PRN (Reason: Nausea) Qty: 40 RF: 0 oxycodone 5 mg Tablet 5 mg PO Q3HR PRN (Reason: Pain, Moderate (4-6)) Qty: 40 RF: 0 hydromorphone 2 mg Tablet 2 mg PO Q3H PRN (Reason: Pain, Severe (7-10)) Qty: 40 RF: 0 Continued pravastatin 40 mg Tablet 40 mg PO QAM RF: 0 albuterol sulfate [ProAir HFA] 90 mcg/actuation Hfa Aerosol Inhaler 2 puff INHALATION Q4-6H PRN (Reason: Cough) RF: 0 fluticasone propionate [Flonase Allergy Relief] 50 mcg/actuation [place],Suspension 1 spray INTRANASAL DAILY PRN (Reason: seasonal allergies) RF: 0 loratadine [Claritin] 10 mg Tablet 10 mg PO DAILY PRN (Reason: seasonal allergies) RF: 0 omeprazole 20 mg Tablet,Delayed Release (Dr/Ec) 20 mg PO QPM RF: 0 Discontinued aspirin 81 mg Tablet,Delayed Release (Dr/Ec) 81 mg PO DAILY RF: 0 acetaminophen [Tylenol Arthritis Pain] 650 mg Tablet Extended Release 1,300 mg PO Q8H PRN (Reason: Pain) RF: 0 ibuprofen [Advil] 200 mg Tablet 800 mg PO Q4H PRN (Reason: Pain) RF: 0 Follow up/Referrals: Ghazala Bellamy ARNP [Primary Care Provider] - Raoul Spear MD [Physician] - 3-5 Days Provider Discharge Instructions Diet: Diet as Tolerated and Carb-consistent/Diabetic Activity: You may bear weight as tolerated on your left leg. Cold/Heat Therapy: Apply ice for 15 minutes every hour to the left knee as needed for pain. Skin/Wound/Dressing Care Report to your healthcare provider any signs of infection, such as:: chills, fever, night sweats, increased pain, unusual drainage and unusual redness Dressing: Removed the Se wrap 3 days after surgery. You may then shower normally. Leave the deeper dressing in place. If the central strip of the deeper dressing becomes saturated with either water or blood, please call the office to have it changed. Visit Report/Discharge Packet Instructions: DI for Knee Replacement Stand Alone Forms: Surgery Discharge Discharge Data Primary Care Provider: Ghazala Bellamy Attending Provider: Raoul Spear Admit Date/Time: 12/04/18 07:37
--- NOTE | 2018-12-06 07:26 | PM.DS.1 ---
History of Present Illness Date Patient Seen: 12/06/18 Chief complaint: [id number] Left Total Knee Arthroplasty Discharge Providers Date of admission: 12/04/18 07:37 Primary care physician: JASON Prado Consults: 12/04/18 14:17 Consult to Discharge Planning Routine Comment: Consult to Physical Therapy Evaluate & Treat Comment: Physician Instructions: postop TKA protocol Discharge provider: Laura Barba PA-C Exam Vital Signs (past 8 hours): - 12/06/18 00:00 12/06/18 06:00 Temperature 98.8 F 99.5 F Pulse Rate 93 H 92 H Respiratory Rate 18 16 Blood Pressure 142/78 H 137/96 H Pulse Oximetry 95 97 Oxygen Delivery Method Room Air Oxygen Flow Rate 0 Objective Labs Result Diagrams: 12/05/18 05:57 Discharge Plan Discharge Plan Patient Disposition: Home Discharge Med Rec/Prescriptions Prescriptions: New acetaminophen 325 mg Tablet 975 mg PO TID 30 Days Qty: 270 RF: 0 aspirin 81 mg Tablet,Delayed Release (Dr/Ec) 81 mg PO BID 42 Days Qty: 84 RF: 0 hydroxyzine pamoate 25 mg Capsule 25 mg PO Q6HR PRN (Reason: Nausea) Qty: 40 RF: 0 oxycodone 5 mg Tablet 5 mg PO Q3HR PRN (Reason: Pain, Moderate (4-6)) Qty: 40 RF: 0 hydromorphone 2 mg Tablet 2 mg PO Q3H PRN (Reason: Pain, Severe (7-10)) Qty: 40 RF: 0 Continued pravastatin 40 mg Tablet 40 mg PO QAM RF: 0 albuterol sulfate [ProAir HFA] 90 mcg/actuation Hfa Aerosol Inhaler 2 puff INHALATION Q4-6H PRN (Reason: Cough) RF: 0 fluticasone propionate [Flonase Allergy Relief] 50 mcg/actuation [place],Suspension 1 spray INTRANASAL DAILY PRN (Reason: seasonal allergies) RF: 0 loratadine [Claritin] 10 mg Tablet 10 mg PO DAILY PRN (Reason: seasonal allergies) RF: 0 omeprazole 20 mg Tablet,Delayed Release (Dr/Ec) 20 mg PO QPM RF: 0 Discontinued aspirin 81 mg Tablet,Delayed Release (Dr/Ec) 81 mg PO DAILY RF: 0 acetaminophen [Tylenol Arthritis Pain] 650 mg Tablet Extended Release 1,300 mg PO Q8H PRN (Reason: Pain) RF: 0 ibuprofen [Advil] 200 mg Tablet 800 mg PO Q4H PRN (Reason: Pain) RF: 0 Follow up/Referrals: Ghazala Bellamy ARNP [Primary Care Provider] - Raoul Spear MD [Physician] - 3-5 Days Provider Discharge Instructions Diet: Diet as Tolerated and Carb-consistent/Diabetic Activity: You may bear weight as tolerated on your left leg. Cold/Heat Therapy: Apply ice for 15 minutes every hour to the left knee as needed for pain. Skin/Wound/Dressing Care Report to your healthcare provider any signs of infection, such as:: chills, fever, night sweats, increased pain, unusual drainage and unusual redness Dressing: Removed the Se wrap 3 days after surgery. You may then shower normally. Leave the deeper dressing in place. If the central strip of the deeper dressing becomes saturated with either water or blood, please call the office to have it changed. Visit Report/Discharge Packet Instructions: DI for Knee Replacement Stand Alone Forms: Surgery Discharge Discharge Data Primary Care Provider: Ghazala Bellamy Attending Provider: Raoul Spear Admit Date/Time: 12/04/18 07:37
[2018-12-06 08:00] VITALS: BP 141/86; PULSE 95; RESP 19; TEMP 36.8; O2SAT 95
[2018-12-06 08:30] VITALS: PULSE 90; RESP 16; O2SAT 96
[2018-12-06] MEDS: MELOXICAM 7.5 MG TABLET 15 MG PO (08:55)
[2018-12-06] MEDS: ACETAMINOPHEN 325 MG TABLET 975 MG PO (08:55)
[2018-12-06] MEDS: INSULIN ASPART 100 UNIT/ML INSULN PEN SUBCUT (08:55)
[2018-12-06] MEDS: ASPIRIN EC 81 MG TABLET PO (08:55)
[2018-12-06] MEDS: DOCUSATE 100 MG CAPSULE PO (08:55)
[2018-12-06] MEDS: SODIUM CHLORIDE 0.9% FLUSH 10 ML IV (08:55)
--- NOTE | 2018-12-06 10:44 | PT.IPTN ---
Current Diagnoses Unilateral primary osteoarthritis, left knee (12/04/18) Surgery Performed Operation Date: 12/04/18 10:00 Actual Procedures p Total Knee Arthroplasty(Left) - Raoul Spear MD Physical Therapy Treatment Note M2 PT-IP Current Condition Start: 12/04/18 16:57 Freq: NEEDED Status: Active Protocol: Document 12/05/18 11:00 AB (Rec: 12/05/18 12:45 AB [id number]) Physical Therapy Current Condition Current Condition Evaluation Date 12/05/18 Treatment Diagnosis s/p L TKA; difficulty in walking Onset Date 12/04/18 Weight Bearing Status Weight Bearing Status Weight Bear as Tolerated M3 PT-IP Subjective Start: 12/04/18 16:57 Freq: NEEDED Status: Active Protocol: Document 12/06/18 10:30 CLB (Rec: 12/06/18 10:44 CLB [id number]) Subjective Physical Therapy Visit Type Type Treatment Note Visit Start Time 10:05 Visit Stop Time 10:30 Total Visit Minutes 25 Number of FLOORWORKER LASTING Visits 1 Physical Therapy Visit Comments Patient Comments pt agreeable to do PT Therapy Pain Assessment Pain When Pain Assessed At Rest Pain Present Pain Present Pain Reported Location Left Knee Intensity 2 M4 PT-IP Mobility and Gait Start: 12/04/18 16:57 Freq: NEEDED Status: Active Protocol: Document 12/06/18 10:30 CLB (Rec: 12/06/18 10:44 CLB [id number]) PT-Bed Mobility Assessment Supine to Sit Supine to Sit Standby Assistance Scooting Scooting to Edge of Bed Standby Assistance PT-Transfer Assessment Sit to and From Stand Sit to and from Stand Standby Assistance Equipment Transfer Assistive Device Gait Belt Front Wheeled Walker Orthotic/Prosthetic Devices or Brace: No Transfers Transfer Destination Chair Transfer Ability Level of Assist Standby Assistance Comments Mobility Comments Pt able to get out of bed on right side of bed with flat bed using RLE hooked under LLE to get leg off bed to rest on floor. Gait Assessment Gait Gait Assistance Required: Standby Assistance 1 Person Assist Distance (Feet) 100 Able to Maintain Weight Bearing Status Yes During Gait Assistive Devices Assistive Device Gait Belt Front Wheeled Walker Orthotic/Prosthetic Devices or Brace: No Gait Deviations General Gait Pattern Antalgic Decreased Stride Length Decreased Feet Clearance Step-to Gait Factors Limiting Gait Function Factors Limiting Gait Function Decreased Activity Tolerance Decreased Strength Limited Range of Motion Pain Stair Climbing Assessment Evaluation Level of Assist On Stairs Contact Guard Assistance 1 Person Assistance Devices Stair Climbing Assistive Devices Right Railing Technique/Endurance Stair Climbing Direction Ascend and Descend Stair Climbing Technique Step to Step Number of Steps Climbed 3 Stair Climbing Set # Repetitions (reps) 1 Comments Stair Climbing Comments Pt able to climb stairs with assist using only R ascending rail. M5 PT-IP Objective Assessments Start: 12/04/18 16:57 Freq: NEEDED Status: Active Protocol: Document 12/05/18 11:00 AB (Rec: 12/05/18 12:45 AB [id number]) Orientation Orientation/Cognition Level of Alertness Alert Orientation Name Age Birthday Month Date Year Day of Week Place Situation Language Function Ability No Deficits Noted Safety Awareness Understands Safety Issues Memory Description No Deficits Noted Gross Range of Motion Lower Extremity ROM Assessment Left Impaired Impairments L knee flexion: ~ 60 deg L knee extension: ~ 30 degress less to 0 Strength Lower Extremity Strength Assessment Left Impaired Hip 3+/5 Knee 3-/5 Coordination Assessment Gross Coordination Gross Coordination WNL Sensation Assessment Sensation Gross Sensation WNL Muscle Tone Muscle Tone WNL Yes M6 PT-IP Treatment Start: 12/04/18 16:57 Freq: NEEDED Status: Active Protocol: Document 12/06/18 10:30 CLB (Rec: 12/06/18 10:44 CLB [id number]) Physical Therapy Treatment Exercises Exercises Quad Sets Heel Slides Short Arc Quads Education Education Provided Safety M7 PT-IP Assessment and Plan Start: 12/04/18 16:57 Freq: NEEDED Status: Active Protocol: Document 12/06/18 10:30 CLB (Rec: 12/06/18 10:44 CLB [id number]) PT Summary Assessment and Plan Summary Impairments Pain ROM Strength Balance Coordination Sensation Tone Cognition Bed Mobility Transfers Gait Activity Tolerance Progress Towards Goals Progressing Toward Goals Assessment Summary Pt improved with all mobility with good pain control throughout tx. Pt able to climb stair safely with CGA from . Goals Bed Mobility Goal Independent Transfer Goal Independent Front Wheeled Walker Gait Goal Independent Front Wheel Walker Gait Distance 200 Other Goals up/down 3 steps with R rail ascending CGA Days to Meet Goals 5 Frequency of Treatment Frequency Of Treatment Twice a Day Treatment Plan Physical Therapy Treatment Plan Bed Mobility Training Transfer Training Gait Training Therapeutic Exercise Balance Retraining Post Op Education Discharge Planning Hot or Cold Pack Neuromuscular Re-ed Coordination Retraining Manual Therapy Recommendations To Nursing Amount of Assist Needed 1 Person Assist Discharge Recommendations PT Discharge Recommendations Home with Assistance Outpatient PT
--- NOTE | 2018-12-06 11:23 | PC.NURSE ---
Discharge pt states pain controlled with PO dilaudid. Taking this much less regularly and pain is better controlled to not there. Up with with PT and with staff with FWW. was given new Rx and took to pharmacy to get it filled. PIV removed from pt without issue prior to d/c. She was able to take a shower. Dressing CDI. Se wrap removed. D/c instructions provided to pt, aware of f/u apt with MD and PT apts as well. Aware to contact MD with any additional questions or concerns. Pt states she took all belongings with her. left in w/c with KATHYA soriano and her .
== END 2018-12-06 11:10 | disposition home or self-care (01) | DRG 470 ==
PROVIDERS: Admitting Provider Orthopaedic Surgery; PCP Nurse Practitioner Family; Visit Provider Orthopaedic Surgery
PROC: 0SRD0JZ Replacement of Left Knee Joint with Synthetic Substitute, Open Approach (ICD-10-PCS; CPT 27447; principal; 2018-12-04 10:00)
DX: M17.12 Unilateral primary osteoarthritis, left knee (principal); I10 Essential (primary) hypertension; E11.9 Type 2 diabetes mellitus without complications; Z87.891 Personal history of nicotine dependence; K21.9 Gastro-esophageal reflux disease without esophagitis; E66.9 Obesity, unspecified; Z68.35 Body mass index [BMI] 35.0-35.9, adult
CPT/HCPCS: 36415; 64450; 73560; 82962; 85014; 85018; 94760; 97110; 97116; 97161; 97530; C1776; C9290; J0690; J1170; J2250; J2270; J2405; J2704; J3010